=== PATIENT | male | born 1995 | race Caucasian/White ===

== ENCOUNTER 2021-04-13 06:12 | Emergency (ER) | payer OTHER, BC ==
[2021-04-13 06:17] VITALS: BP 121/76; PULSE 65
[2021-04-13] MEDS ORDERED: Lidocaine 1% 5 ML VIAL INJECT ONE (06:56)
[2021-04-13] MEDS ORDERED: Diphtheria,Pertussis(Acell),Tetanus Vaccine 0.5 ML Syringe IM ONE (06:57)
[2021-04-13] MEDS ORDERED: Bacitracin/Neomycin/Polymyxin B Oint 0.9 GM U/D Packet TOP ONE (06:58)
== END 2021-04-13 07:30 | disposition home or self-care (01) ==
LOC: LL.ED 06:12
DX: S61.211A Laceration without foreign body of left index finger without damage to nail, initial encounter (principal); Z23 Encounter for immunization; W26.8XXA Contact with other sharp object(s), not elsewhere classified, initial encounter
CPT/HCPCS: 12001; 90715; 99282-25

== ENCOUNTER 2021-05-19 10:28 | Emergency (ER) | payer OTHER, BC ==
[2021-05-19 10:36] VITALS: BP 122/65; PULSE 69
[2021-05-19] MEDS ORDERED: Lidocaine 1% 5 ML VIAL INJECT ONE ×2 (10:46→10:50)
[2021-05-19] MEDS ORDERED: Bacitracin Oint 1 GM U/D Packet TOP ONE (11:26)
== END 2021-05-19 11:45 | disposition home or self-care (01) ==
LOC: LL.ED 10:28
DX: S67.191A Crushing injury of left index finger, initial encounter (principal); S61.301A Unspecified open wound of left index finger with damage to nail, initial encounter; F32.A Depression, unspecified; Z79.899 Other long term (current) drug therapy; W23.0XXA Caught, crushed, jammed, or pinched between moving objects, initial encounter; Y92.019 Unspecified place in single-family (private) house as the place of occurrence of the external cause
CPT/HCPCS: 64450; 73140-F1; 99283; 99283-25